=== PATIENT | male | born 1975 | race Caucasian/White ===

== ENCOUNTER 2021-05-26 10:59 | Emergency (ER) | payer BC ==
[2021-05-26 13:49] LABS: HEMOGLOBIN 14.6 gm/dl (14.0-17.5); RED BLOOD COUNT 4.68 M/UL (4.20-5.50); WHITE BLOOD COUNT 7.2 K/UL (4.5-11.0)
[2021-05-26 14:22] LABS: BUN/CREATININE RATIO 11 (0-10)
[2021-05-26] MEDS ORDERED: BACTRIM DS TAB1 EACH PO (14:57)
[2021-05-26] MEDS ORDERED: TOPROL XL50 MG PO (14:57)
[2021-05-26] MEDS ORDERED: CEPHALEXIN500 MG PO (14:57)
== END 2021-05-26 15:13 | disposition home or self-care (01) ==
LOC: EDSEX 10:59 → EDBD 10:59 → ER1 10:59
PROVIDERS: Physician Assistant
DX: S80.11XA Contusion of right lower leg, initial encounter (principal); L03.115 Cellulitis of right lower limb; I10 Essential (primary) hypertension; Z76.0 Encounter for issue of repeat prescription; W22.8XXA Striking against or struck by other objects, initial encounter
CPT/HCPCS: 73590; 80053; 85025; 93971; 99284